=== PATIENT | female | born 1970 | race Caucasian/White ===

== ENCOUNTER 2019-12-01 20:02 | Emergency (ER) | payer OTHER ==
[~2019-12-01] VITALS: Ht 165.1 cm; Wt 54.4 kg
[2019-12-01] MEDS ORDERED: NORCO 5-325 TA1 EAC1 PO (23:02)
[2019-12-01] MEDS ORDERED: KEFLEX500 M1 PO (23:02)
[2019-12-01 23:25] VITALS: BP 106/69
== END 2019-12-01 23:29 | disposition home or self-care (01) ==
LOC: M.ERS 20:02
DX: S51.012A Laceration without foreign body of left elbow, initial encounter (principal); S80.11XA Contusion of right lower leg, initial encounter; V29.9XXA Motorcycle rider (driver) (passenger) injured in unspecified traffic accident, initial encounter; Y93.55 Activity, bike riding; Y92.89 Other specified places as the place of occurrence of the external cause; Y99.8 Other external cause status

== ENCOUNTER → 2021-04-08 | Outpatient (CLI) | payer OTHER ==
[~2021-04-08] MED LIST: KEFLEX500 M1 PO; NORCO 5-325 TA1 EAC1 PO
== END ==
LOC: M.RAD 14:26
PROVIDERS: ATTEND Internal Medicine
DX: Z12.31 Encounter for screening mammogram for malignant neoplasm of breast (principal)